=== PATIENT | female | born 1945 | race Caucasian/White ===

== ENCOUNTER → 2018-01-30 | Outpatient (CLI) | payer OTHER ==
[~2018-01-30] MED LIST: CLARITIN10 MG PO; HYDROCHLOROTH12.5 M1 PO; LISINOPRIL20 MG PO; MEDROLDOSEPACK PO; NEXIUM40 MG PO; NORCO 5-325 TA1 EACH PO; PREDNISONE 10 M10 MG PO; TUMS; VENTOLIN HFA 1818 GM INH; ZPAK PO
== END ==
LOC: M.RAD 10:18
DX: M47.894 Other spondylosis, thoracic region (principal)

== ENCOUNTER 2018-01-31 13:24 | Emergency (ER) | payer OTHER ==
[~2018-01-31] VITALS: Ht 149.9 cm; Wt 73.7 kg
[~2018-01-31 13:24] MED LIST changes: -CLARITIN10 MG PO; -HYDROCHLOROTH12.5 M1 PO; -MEDROLDOSEPACK PO; -NEXIUM40 MG PO; -PREDNISONE 10 M10 MG PO; -VENTOLIN HFA 1818 GM INH; -ZPAK PO
[2018-01-31] MEDS ORDERED: VENTOLIN HFA 1818 GM INH (13:48)
[2018-01-31] MEDS ORDERED: ZPAK PO (13:49)
[2018-01-31] MEDS ORDERED: HYDROCHLOROTH12.5 M1 PO (13:49)
[2018-01-31] MEDS ORDERED: NEXIUM40 MG PO (13:49)
[2018-01-31] MEDS ORDERED: LISINOPRIL20 MG PO (13:49)
[2018-01-31] MEDS ORDERED: PREDNISONE 10 M10 MG PO (13:50)
[2018-01-31] MEDS ORDERED: CLARITIN10 MG PO (13:50)
[2018-01-31 14:01] LABS: ABSOLUTE LYMPHOCYTES 1.3 thou/uL (0.8-5.3); ABSOLUTE MONOCYTES 0.2 thou/uL (0.0-1.2); ABSOLUTE NEUTROPHILS 5.7 thou/uL (1.6-8.1); BASOPHILS 0.6 %; EOSINOPHILS 0.1 %; HEMATOCRIT 41.6 % (37.0-47.0); HEMOGLOBIN 13.9 gm/dL (12.0-15.0); LYMPHOCYTES 17.5 %; MCH 27.3 pg (26.0-34.0); MCHC 33.5 g/dL (28.0-37.0); MCV 81.3 fL (80.0-100.0); MONOCYTES 2.8 %; MPV 7.9 fl. (7.2-11.1); NUCLEATED RBCS 0 /100WBC; PLATELET COUNT* 173 thou/uL (150-400); RBC 5.11 mil/uL (4.20-5.00); WBC 7.2 thou/uL (4.0-11.0)
[2018-01-31 14:12] LABS: CALCIUM 9.5 mg/dL (8.5-10.1); CREATININE 1.1 mg/dL (0.6-1.3); POTASSIUM 3.5 mmol/L (3.5-5.1)
[2018-01-31 14:17] LABS: URINE BILIRUBIN NEGATIVE (Negative); URINE BLOOD TRACE (Negative); URINE CLARITY CLEAR; URINE COLOR YELLOW; URINE GLUCOSE-RANDOM NEGATIVE (Negative); URINE KETONES NEGATIVE (Negative); URINE LEUKOCYTES-REFLEX NEGATIVE (Negative); URINE NITRITE-REFLEX NEGATIVE (Negative); URINE PROTEIN NEGATIVE (Negative); URINE SPECIFIC GRAVITY <= 1.005 (1.005-1.030); URINE UROBILINOGEN 0.2 E.U./dl (0.2-1.0)
[2018-01-31 14:17] LABS: ALBUMIN 3.8 g/dL (3.4-5.0); MAGNESIUM 1.8 mg/dL (1.8-2.4); TOTAL BILIRUBIN 0.3 mg/dL (<0.1-1.0); TOTAL PROTEIN 7.1 g/dL (6.4-8.2)
[2018-01-31 14:21] LABS: HCO3 24.5 mmol/L (22.0-26.0); PCO2 35.8 mmHg (35.0-45.0); PO2 90.5 mmHg (75.0-100.0); pH 7.454 (7.340-7.450)
[2018-01-31] MEDS ORDERED: MEDROLDOSEPACK PO (16:19)
[2018-01-31 17:10] VITALS: BP 142/90
== END 2018-01-31 17:12 | disposition home or self-care (01) ==
LOC: M.ERS 13:24
PROVIDERS: Personal Emergency Response Attendant
DX: B34.9 Viral infection, unspecified (principal); J45.909 Unspecified asthma, uncomplicated; I10 Essential (primary) hypertension; K21.9 Gastro-esophageal reflux disease without esophagitis; Z90.710 Acquired absence of both cervix and uterus; Z88.1 Allergy status to other antibiotic agents; Z88.0 Allergy status to penicillin; Z88.2 Allergy status to sulfonamides; Z88.8 Allergy status to other drugs, medicaments and biological substances

== ENCOUNTER → 2018-04-02 | Outpatient (CLI) | payer OTHER ==
[~2018-04-02] MED LIST changes: +CLARITIN10 MG PO; +HYDROCHLOROTH12.5 M1 PO; +MEDROLDOSEPACK PO; +NEXIUM40 MG PO; +PREDNISONE 10 M10 MG PO; +VENTOLIN HFA 1818 GM INH; +ZPAK PO
== END ==
LOC: M.ULTRA 04-01 16:00 → M.RAD 11:14 → M.ULTRA 11:30
DX: J45.901 Unspecified asthma with (acute) exacerbation (principal); M79.604 Pain in right leg; M79.89 Other specified soft tissue disorders; R60.0 Localized edema

== ENCOUNTER → 2018-04-04 | Outpatient (CLI) | payer OTHER | LOC: M.CT 08:16 | DX: R06.02 Shortness of breath (principal); Z86.711 Personal history of pulmonary embolism; R79.89 Other specified abnormal findings of blood chemistry; Z88.6 Allergy status to analgesic agent; Z88.1 Allergy status to other antibiotic agents; Z88.8 Allergy status to other drugs, medicaments and biological substances; Z88.0 Allergy status to penicillin; Z88.2 Allergy status to sulfonamides ==

== ENCOUNTER → 2018-04-11 | Outpatient (CLI) | payer OTHER | LOC: M.ULTRA 10:10 | DX: E04.2 Nontoxic multinodular goiter (principal) ==

== ENCOUNTER → 2018-05-19 | Outpatient (CLI) | payer OTHER ==
--- NOTE | 2018-05-20 16:08 | PATH ---
[address] [address] PATHOLOGY RPT PROCEDURE Name: YAHIR MILES Room: [facility] New#: [id number] Admission: 05/19/18 Date of : 43 Discharge: Report #: [id number] Path Case #: [id number] Note [facility] Accession Number: [id number] TESTS RESULT FLAG UNITS REF RANGE LAB Clinician Provided Cytology Information No. of containers..01 Other (Miscellaneous) Source: 01 L THYROID W/ RNA RET DIAGNOSIS: 02 L THYROID W/ RNA RET NEGATIVE FOR MALIGNANT CELLS. BETHESDA CATEGORY II. SPECIMEN CONSISTS OF ABUNDANT BENIGN FOLLICULAR CELLS, HEMOSIDERIN-LADEN MACROPHAGES, SCANT COLLOID AND BLOOD. THE PATTERN IS CONSISTENT WITH ADENOMATOID NODULE. THIS INTERPRETATION INCLUDES EVALUATION OF A CELL BLOCK. Pathologist ICD10: 02 E04.1 Signed out by: 02 Jose Esparza MD, Pathologist NPI- [id number] Performed by: 02 Diana Funes, Strategic Procurement Manager ([facility]) Gross description: 01 20ML, ZALDIVAR, CLOUDY /LCS FLAG LEGEND: L-Low Normal,H-High Normal,LL-Alert Low,HH-Alert High <-Panic Low,>-Panic High,A-Abnormal,AA-Critical Abnormal Performed at: [address] [id number] James Villalobos MD, [address] [address] Jose Esparza MD, Performed at: [address] [id number] MD James Villalobos MD Phone: [phone]
== END | disposition home or self-care (01) ==
LOC: M.ULTRA 07:47
DX: E04.1 Nontoxic single thyroid nodule (principal); Z88.2 Allergy status to sulfonamides; Z88.8 Allergy status to other drugs, medicaments and biological substances; Z79.899 Other long term (current) drug therapy

== ENCOUNTER → 2018-07-30 | Outpatient (CLI) | payer OTHER ==
--- NOTE | 2018-08-07 07:58 | SLEEP ---
[address] [address] SLEEP STUDY REPORT Name: YAHIR MILES [id number] Admission: 07/30/18 Attend Phys: Kasey Esquivel Discharge: Date of : 43 Report #: [id number] THIS REPORT FOR: //name// CC: Kasey Ibarra This study has been reviewed in its entirety by a board certified sleep specialist DATE OF SERVICE: 07/30/2018 LOCATION: [facility]. ATTENDING PHYSICIAN: SONAL Denson. The patient is 73 years old who weighs 155 pounds and is 58 inches tall with a BMI of 32.4. The patient's Rockledge score was 12. The patient underwent a sleep study performed at [facility] to rule out SHON. During the night study, the patient spent 383 minutes in bed and slept for 168 minutes with a low sleep efficiency of 44%. Sleep latency was 29.9 minutes with a REM latency, which was absent due to lack of REM sleep. Overall, sleep architecture showed increased stage I sleep, normal stage II sleep, increased slow wave sleep, which was 42% of the total sleep time and absent REM sleep. During the night study, the patient had no central, mixed or obstructive apneas. The patient had no hypopneas either. The patient did have some respiratory effort related arousals. The patient's AHI for the entire night was 0 per hour. EKG monitoring revealed normal sinus rhythm. Average heart rate was 67 beats per minute. No sustained arrhythmias were observed. PLMS were seen at an index of 40 per hour and 4.6 per hour caused EEG arousals. Review of nocturnal oximetry study revealed an average oxygen saturation of 95% with a lowest of 91%. No clinically significant desaturation of less than 90% were observed. The patient did not meet the split night criteria for CPAP initiation. IMPRESSION: 1. No clinically significant sleep disordered breathing. The patient's apnea-hypopnea index for the entire night was 0 per hour. 2. Reduced sleep efficiency of 44%, resulting from sleep maintenance insomnia. 3. No clinically [place] [address] SLEEP STUDY REPORT Name: YAHIR MILES Room: [facility]#: [id number] Admission: 07/30/18 Attend Phys: Kasey Esquivel Discharge: Date of : 43 Report #: [id number] 4. Moderate periodic limb movements. RECOMMENDATION: 1. The patient did not meet the criteria for CPAP initiation. 2. The patient has sleep maintenance insomnia. This can contribute to daytime sleepiness. The patient should be clinically evaluated for etiologies of insomnia and it should be treated accordingly. 3. The patient should also be further evaluated for symptoms of restless legs during the day. 4. Weight loss is advised. 5. Avoid EXHAUST AND MUFFLER REPAIRER depressants. <ELECTRONICALLY SIGNED> By: Saúl Whitmore MD 08/07/18 [id number] 1926Aman Hilton Whitmore MD /nt
== END ==
LOC: M.SLEEPLAB 21:00
DX: I10 Essential (primary) hypertension (principal); G47.00 Insomnia, unspecified; E66.09 Other obesity due to excess calories; R06.83 Snoring; J45.901 Unspecified asthma with (acute) exacerbation; Z86.32 Personal history of gestational diabetes

== ENCOUNTER → 2020-02-09 | Outpatient (CLI) | payer OTHER | LOC: M.CT 08:45 | DX: R06.02 Shortness of breath (principal); Z87.11 Personal history of peptic ulcer disease ==

== ENCOUNTER → 2021-06-14 | Outpatient (CLI) | payer OTHER ==
[2021-06-14 14:42] LABS: ABSOLUTE BASOPHILS 0.1 thou/uL (0.0-0.2); ABSOLUTE EOSINOPHILS 0.2 thou/uL (0.0-0.7); ABSOLUTE LYMPHOCYTES 1.8 thou/uL (0.8-5.3); ABSOLUTE MONOCYTES 0.3 thou/uL (0.0-1.2); BASOPHILS 1.1 %; EOSINOPHILS 3.8 %; HEMATOCRIT 40.8 % (37.0-47.0); HEMOGLOBIN 13.8 gm/dL (12.0-15.0); LYMPHOCYTES 33.6 %; MCH 27.4 pg (26.0-34.0); MCHC 33.8 g/dL (28.0-37.0); MONOCYTES 5.8 %; MPV 7.5 fl. (7.2-11.1); NUCLEATED RBCS 0 /100WBC; PLATELET COUNT* 164 thou/uL (150-400); POLYS 55.7 %; RBC 5.04 mil/uL (4.20-5.00); RDW-CV 14.1 % (10.5-14.5); WBC 5.4 thou/uL (4.0-11.0)
[2021-06-14 15:01] LABS: ALBUMIN 3.7 g/dL (3.4-5.0); ALKALINE PHOSPHATASE 77 U/L (46-116); ANION GAP 7 mmol/L (7-16); BUN 11 mg/dL (7-18); CALCIUM 8.7 mg/dL (8.5-10.1); CHLORIDE 107 mmol/L (98-107); CHOLESTEROL 213 mg/dL (<200); CO2 28 mmol/L (21-32); CREATININE 0.9 mg/dL (0.6-1.3); GLUCOSE 93 mg/dL (70-99); HDL CHOLESTEROL 71 mg/dL (>40); LDL CHOLESTEROL 129 mg/dL (<100); POTASSIUM 3.9 mmol/L (3.5-5.1); SGOT 23 U/L (15-37); SGPT 31 U/L (30-65); SODIUM 142 mmol/L (136-145); TOTAL BILIRUBIN 0.6 mg/dL (<0.1-1.0); TOTAL PROTEIN 6.7 g/dL (6.4-8.2); TRIGLYCERIDE 68 mg/dL (<150); VLDL 14 mg/dL (<40)
[2021-06-14 15:04] LABS: SERUM ASSESSMENT Clear
== END ==
LOC: M.CT 14:09
PROVIDERS: ATTEND Family Medicine
DX: R31.29 Other microscopic hematuria (principal); R10.9 Unspecified abdominal pain; N83.8 Other noninflammatory disorders of ovary, fallopian tube and broad ligament; M47.819 Spondylosis without myelopathy or radiculopathy, site unspecified; K76.89 Other specified diseases of liver; I10 Essential (primary) hypertension; Z68.33 Body mass index [BMI] 33.0-33.9, adult